=== PATIENT | female | born 1985 | race Caucasian/White ===

== ENCOUNTER 2018-12-05 20:32 | Emergency (ER) | payer MEDICAID ==
[~2018-12-05] VITALS: Ht 170.2 cm; Wt 72.6 kg
--- NOTE | 2018-12-05 21:21 | NUR ---
MOTHER CONTACT INFORMATION: MICAH-
--- NOTE | 2018-12-05 21:30 | NUR ---
[id number] FROM HOME. MOTHER CALLED 911 DUE TO BIZZARRE BEHAVIOR AND LOCKING HERSELF INSIDE HOME. PT AAOX4. REPEATING SAME PHRASES. +SI/-HI. PT HYPERVERBAL, DENIES CP, SOB, DIZZINESS, N/V/D AT THIS TIME. PT SEEN & EVAL'D BY TAMIE AYOUB. WILL CONT TO MONITOR.
[2018-12-05 22:12] LABS: BASOPHILS # (AUTO) 0.1 /CMM (0.0-0.2); BASOPHILS % (AUTO) 0.5 % (0.0-2.0); EOSINOPHILS % (AUTO) 0.1 % (0.0-6.0); HEMATOCRIT 40 % (33-45); HEMOGLOBIN 13.5 g/dL (11.5-14.8); LYMPHOCYTES # (AUTO) 1.8 /CMM (0.8-4.8); LYMPHOCYTES % (AUTO) 11.8 % (20.0-44.0); MEAN CORPUSCULAR HGB CONC 34 g/dl (31.0-36.0); MEAN CORPUSCULAR VOLUME 85 fL (82-100); MONOCYTES # (AUTO) 0.7 /CMM (0.1-1.30); MONOCYTES % (AUTO) 4.8 % (2.0-12.0); NEUTROPHILS % (AUTO) 82.8 % (43.0-81.0); PLATELET COUNT (AUTO) 381 /CMM (150-450); RED BLOOD CELL COUNT(AUTO) 4.75 MIL/uL (4.0-5.2); WHITE BLOOD COUNT (AUTO) 15.7 K/uL (4.3-11.0)
[2018-12-05 22:23] LABS: CALCIUM, SERUM 9.4 mg/dL (8.5-10.1); CARBON DIOXIDE 25 mmol/L (21-32); CHLORIDE 103 mmol/L (98-107); GLUCOSE 119 mg/dL (74-106); POTASSIUM 3.9 mmol/L (3.5-5.1); SODIUM SERUM 139 mmol/L (136-145); UREA NITROGEN, BLOOD 12 mg/dL (7-18)
[2018-12-05 22:29] LABS: ALANINE AMINOTRANSFERASE 42 U/L (12-78); ALBUMIN 4.4 g/dL (3.4-5.0); ALKALINE PHOSPHATASE 61 U/L (46-116); ASPARTATE AMINOTRANSFERASE 26 U/L (15-37); BILIRUBIN,DIRECT 0.1 mg/dL (0.0-0.2); BILIRUBIN,TOTAL 0.5 mg/dL (0.2-1.0); TOTAL PROTEIN, SERUM 7.7 g/dL (6.4-8.2)
[2018-12-05 22:30] LABS: ACETAMINOPHEN 0 ug/ml (10-30); ALCOHOL, BLOOD < 3 mg/dL (0-0); SALICYLATE 1.7 mg/dL (2.8-20.0)
[2018-12-05] MEDS ORDERED: OLANZAPINE 5 MG TABLET PO ONE (22:30)
[2018-12-05] MEDS ORDERED: OLANZAPINE 5 MG TABLET ONE (22:34)
--- NOTE | 2018-12-05 22:47 | NUR ---
PT REFUSED MED, ANITRA WILLETT AWARE.
--- NOTE | 2018-12-05 23:35 | NUR ---
ATTEMPTED TO GET URINE SAMPLE FROM PT, PT REFUSED. AWARE
--- NOTE | 2018-12-06 01:12 | NUR ---
PT TO CT
--- NOTE | 2018-12-06 01:44 | NUR ---
PT REFUSED URINE SAMPLE. AWARE
--- NOTE | 2018-12-06 02:20 | NUR ---
LEO NELSON BEDSIDE FOR PSYCHIATRIC EVALUATION
[2018-12-06] MEDS ORDERED: OLANZAPINE 10 MG VIAL IM ONE ×2 (02:30→02:40)
--- NOTE | 2018-12-06 02:47 | NUR ---
PER CRISIS TEAM LEO NELSON, PT IS PSYCHOTIC AND CANNOT REFUSE ZYPREXA. PT MEDICATED PER MD ORDER.
--- NOTE | 2018-12-06 04:38 | NUR ---
PT ABLE TO AMBULATE TO RESTROOM, STEADY GAIT. URINE COLLECTED AND SENT TO LAB
[2018-12-06 04:53] LABS: APPEARANCE,URINE Clear (CLEAR); BILIRUBIN,URINE Negative (NEGATIVE); BLOOD, URINE Negative Ery/uL (NEGATIVE); COLOR,URINE Yellow (YELLOW); KETONES,URINE >=160 (NEGATIVE); LEUKOCYTE ESTERASE ,URINE Negative (NEGATIVE); NITRITE, URINE Negative (NEGATIVE); PROTEIN,URINE Negative (NEGATIVE); UGLUCOSE Negative (NEGATIVE); UROBILINOGEN,URINE 0.2 EU/dL (0.2)
[2018-12-06 05:47] LABS: BACTERIA,URINE Few /HPF (None Seen); RBC,URINE 0-2 /HPF (0-2); SQUAMOUS EPITHELIAL CELL,UR Rare /HPF (None Seen); WBC,URINE 0-2 /HPF (0-3)
--- NOTE | 2018-12-06 06:54 | NUR ---
Patient is resting comfortably in bed with eyes closed. Easily aroused. VSS
--- NOTE | 2018-12-06 10:06 | NUR ---
JAROD GONZALEZ RN FOR PSYCH EVAL, ETA 1HR.
--- NOTE | 2018-12-06 10:20 | NUR ---
PT ASLEEP, RR EVEN & UNLABORED, EASILY AWAKEN BY VERBAL STIMULI. DENIES CP, SOB, DIZZINESS, ABD PAIN, N/V @ THIS TIME. WILL CONT TO MONITOR.
--- NOTE | 2018-12-06 12:00 | NUR ---
CARLOS, SHOE CLERK @ BS FOR EVAL.
--- NOTE | 2018-12-06 12:30 | NUR ---
PT AAOX3, VSS. DENIES ANY DISCOMFORT. OFFERED FOOD & DRINK BUT PT REFUSED.
[2018-12-06 13:18] VITALS: BP 118/78
== END 2018-12-06 13:20 | disposition home or self-care (01) ==
LOC: ER 20:40
DX: F23 Brief psychotic disorder (principal); I95.9 Hypotension, unspecified; F12.10 Cannabis abuse, uncomplicated; R41.82 Altered mental status, unspecified
CPT/HCPCS: 36415; 70450; 80048; 80076; 80305; 80307; 80329; 81001; 84702; 84703; 85025; 96372; 99284; G0480; J3490; 81000-TC

== ENCOUNTER 2019-02-04 19:49 | Emergency (ER) | payer MEDICAID ==
[~2019-02-04] VITALS: Ht 165.1 cm; Wt 81.6 kg
--- NOTE | 2019-02-04 20:49 | NUR ---
URINE SPECIMEN OBTAINED AND SENT TO THE LAB.
--- NOTE | 2019-02-04 21:00 | NUR ---
BIB SELF FROM HOME. AAOX4. NAD, BREATHING EVEN AND UNLABORED. AMBULATORY.C/O PAIN UPON URINATION, BURNING SENSATION AND ABDOPMINAL PAIN. X 4 DAYS. PT REPORTS BEING NAUSEOUS. TO ER BED 3. MD AT BEDSIDE FOR EVAL.
[2019-02-04 21:07] LABS: APPEARANCE,URINE Slightly Cloudy (CLEAR); BILIRUBIN,URINE Negative (NEGATIVE); BLOOD, URINE Moderate Ery/uL (NEGATIVE); KETONES,URINE Negative (NEGATIVE); LEUKOCYTE ESTERASE ,URINE Small (NEGATIVE); NITRITE, URINE Positive (NEGATIVE); PROTEIN,URINE 100 mg/dl (NEGATIVE); UGLUCOSE Negative (NEGATIVE); UROBILINOGEN,URINE 0.2 EU/dL (0.2)
[2019-02-04 21:24] LABS: BACTERIA,URINE Moderate /HPF (None Seen); COLOR,URINE DARK YELLOW (YELLOW)
[2019-02-04 21:25] LABS: SQUAMOUS EPITHELIAL CELL,UR Few /HPF (None Seen)
[2019-02-04] MEDS ORDERED: CIPROFLOXACIN HCL 500 MG TABLET PO ONE (21:30)
[2019-02-04] MEDS ORDERED: PHENAZOPYRIDINE HCL 200 MG TABLET PO ONE (21:30)
[2019-02-04] MEDS ORDERED: CIPROFLOXACIN HCL 500 MG TABLET ONE (21:39)
[2019-02-04] MEDS ORDERED: PHENAZOPYRIDINE HCL 200 MG TABLET ONE (21:39)
--- NOTE | 2019-02-04 21:42 | NUR ---
Patient discharged to home in stable condition. Written and verbal after care instructions given. Patient verbalizes understanding of instruction. Pt ambulatory with a steady gait
[2019-02-04 21:43] VITALS: BP 146/88
== END 2019-02-04 21:44 | disposition home or self-care (01) ==
LOC: ER 19:52
DX: N39.0 Urinary tract infection, site not specified (principal); I95.9 Hypotension, unspecified
CPT/HCPCS: 81000-TC; 84703-TC; 87086-TC

== ENCOUNTER 2019-04-26 20:53 | Emergency (ER) | payer MEDICAID ==
[2019-04-26] MEDS ORDERED: AMOX/CLAVULANATE 875 MG TABLET PO ONE (23:00)
[2019-04-27] MEDS ORDERED: AMOX/CLAVULANATE 875 MG TABLET ONE (01:51)
== END 2019-04-26 23:45 | disposition home or self-care (01) ==
DX: S60.031A Contusion of right middle finger without damage to nail, initial encounter (principal); Z98.890 Other specified postprocedural states; W54.0XXA Bitten by dog, initial encounter; Y93.89 Activity, other specified; Y92.89 Other specified places as the place of occurrence of the external cause; Y99.8 Other external cause status

== ENCOUNTER 2021-01-02 16:32 | Emergency (ER) | payer OTHER ==
[~2021-01-02] VITALS: Ht 170.2 cm; Wt 77.1 kg
[2021-01-02] MEDS ORDERED: diphenhydrAMINE HCL 50 MG/ML VIAL ONE (16:44)
[2021-01-02] MEDS ORDERED: HALOPERIDOL LACTATE INJ 5 MG/ML VIAL ONE (16:45)
[2021-01-02] MEDS ORDERED: LORAZEPAM INJ 2 MG/ML VIAL ONE (16:45)
--- NOTE | 2021-01-02 16:45 | NUR ---
BIB RA102 From Home "Psych evaluation/Medical Clearance Hx of Schizo pt screaming/inappropriate/agitated and restless" Patient a/ox4, breathing even and unlabored, no sob noted, needs attended. Kept comfortable. Patient still agitated. Placed on restraints per doctor's order.
[2021-01-02 16:54] LABS: BILIRUBIN,URINE SMALL (NEGATIVE); COLOR,URINE YELLOW (YELLOW); LEUKOCYTE ESTERASE ,URINE Negative (NEGATIVE); NITRITE, URINE Negative (NEGATIVE); PH,URINE 5.5 (5.0-8.0); PROTEIN,URINE 30 mg/dl (NEGATIVE); UGLUCOSE Negative (NEGATIVE); UROBILINOGEN,URINE 0.2 EU/dL (0.2)
[2021-01-02] MEDS ORDERED: HALOPERIDOL LACTATE INJ 5 MG/ML VIAL IM ONE (17:00)
[2021-01-02] MEDS ORDERED: LORAZEPAM INJ 2 MG/ML VIAL IM ONE (17:00)
[2021-01-02] MEDS ORDERED: diphenhydrAMINE HCL 50 MG/ML VIAL IM ONE (17:00)
[2021-01-02 17:01] LABS: BASOPHILS % (AUTO) 0.4 % (0.0-2.0); EOSINOPHILS % (AUTO) 0.1 % (0.0-6.0); HEMATOCRIT 38 % (33-45); HEMOGLOBIN 12.6 g/dL (11.5-14.8); LYMPHOCYTES # (AUTO) 1.9 /CMM (0.8-4.8); LYMPHOCYTES % (AUTO) 16.6 % (20.0-44.0); MEAN CORPUSCULAR HGB CONC 33 g/dl (31.0-36.0); MEAN CORPUSCULAR VOLUME 86 fL (82-100); MONOCYTES # (AUTO) 0.6 /CMM (0.1-1.30); MONOCYTES % (AUTO) 5.2 % (2.0-12.0); NEUTROPHILS % (AUTO) 77.7 % (43.0-81.0); PLATELET COUNT (AUTO) 391 /CMM (150-450); RED BLOOD CELL COUNT(AUTO) 4.42 MIL/uL (4.0-5.2); WHITE BLOOD COUNT (AUTO) 11.6 K/uL (4.3-11.0)
[2021-01-02 17:05] LABS: BACTERIA,URINE Rare /HPF (None Seen); RBC,URINE 0-2 /HPF (0-2); SQUAMOUS EPITHELIAL CELL,UR 0-2 /HPF (None Seen); WBC,URINE 0-2 /HPF (0-3)
[2021-01-02 17:14] LABS: ACETAMINOPHEN < 10 ug/ml (10-30); ALANINE AMINOTRANSFERASE 46 U/L (12-78); ALBUMIN 4.5 g/dL (3.4-5.0); ALCOHOL, BLOOD < 3 mg/dL (0-0); ALKALINE PHOSPHATASE 50 U/L (46-116); ASPARTATE AMINOTRANSFERASE 24 U/L (15-37); BILIRUBIN,DIRECT 0.1 mg/dL (0.0-0.2); BILIRUBIN,TOTAL 0.5 mg/dL (0.2-1.0); CALCIUM, SERUM 8.7 mg/dL (8.5-10.1); CARBON DIOXIDE 22 mmol/L (21-32); CHLORIDE 102 mmol/L (98-107); CREATININE 0.8 mg/dL (0.6-1.3); GLUCOSE 145 mg/dL (74-106); POTASSIUM 2.9 mmol/L (3.5-5.1); SODIUM SERUM 138 mmol/L (136-145); TOTAL PROTEIN, SERUM 7.5 g/dL (6.4-8.2); UREA NITROGEN, BLOOD 9 mg/dL (7-18)
[2021-01-02] MEDS ORDERED: IV NS 0.9% 1,000 ML BAG IV ONE (17:30)
[2021-01-02] MEDS ORDERED: POTASSIUM CHLORIDE 20 MEQ TAB.PRT.SR PO ONE ×2 (17:30)
[2021-01-02] MEDS ORDERED: POTASSIUM CL. PREMIX PERIPHER. 200 ML ONE (17:32)
[2021-01-02] MEDS: POTASSIUM CL. PREMIX PERIPHER. 50 ML IV SCH ×4 (17:53→22:57)
[2021-01-02 20:55] LABS: CALCIUM, SERUM 7.9 mg/dL (8.5-10.1); CREATININE 0.7 mg/dL (0.6-1.3); POTASSIUM 3.8 mmol/L (3.5-5.1)
--- NOTE | 2021-01-02 21:43 | NUR ---
PT OPENS EYES TO PAINFUL STIMULI. VITAL SIGNS STABLE. SITTER AT BEDSIDE, WILL CONTINUE TO MONITOR
--- NOTE | 2021-01-03 02:31 | NUR ---
PT RESTING COMFORTABLY IN BED. SITTER STILL AT BEDSIDE, WILL CONTINUE TO MONITOR
--- NOTE | 2021-01-03 05:55 | NUR ---
DISTRICT RECRUITER NAM GONZALEZ AT BEDSIDE FOR EVAL
--- NOTE | 2021-01-03 06:02 | NUR ---
PT AMBULATORY TO RESTROOM WITH STEADY GAIT
--- NOTE | 2021-01-03 07:38 | NUR ---
ASSESSED PT ON BED ASLEEP EASILY AROUSABLE, NOT IN RESPIRATORY DISTRESS, V/S STABLE, KEPT RESTED AND COMFORTABLE. WILL CONTINUE TO MONITOR.
--- NOTE | 2021-01-03 10:58 | NUR ---
DENISE FROM [facility] PT ACCEPTED UNDER DR. MCDANIEL GOING TO EAST UNIT ROOM 288-A CALL [phone]
--- NOTE | 2021-01-03 11:08 | NUR ---
CALLED [facility] FOR REPORT PER JCARLOS CHEN CALL BACK AFTER 15 MINS RN NOT AVAILABLE
--- NOTE | 2021-01-03 11:09 | NUR ---
CALLED TRANSPORT [facility] ETA IS 60 MINS PER ARLIN.
--- NOTE | 2021-01-03 11:35 | NUR ---
PER RN REBEL CALL BACK AFTER 10 MINS.
[2021-01-03 12:05] VITALS: BP 127/82
--- NOTE | 2021-01-03 12:06 | NUR ---
REPORT GIVEN TO JCARLOS LUQUE OF [facility]
--- NOTE | 2021-01-03 12:07 | NUR ---
LAB CALLED PT COVID RESULT NEGATIVE (-).
--- NOTE | 2021-01-03 12:31 | NUR ---
REPORT GIVEN TO EMS FOR PT TRANSFER TO [facility].
== END 2021-01-03 12:44 ==
LOC: ER 17:10
DX: R45.1 Restlessness and agitation (principal); F31.9 Bipolar disorder, unspecified; F43.10 Post-traumatic stress disorder, unspecified; D72.829 Elevated white blood cell count, unspecified; E87.6 Hypokalemia; E86.0 Dehydration; Z20.822 Contact with and (suspected) exposure to COVID-19; Z91.14 Patient's other noncompliance with medication regimen
CPT/HCPCS: 36415; 80048 ×2; 80076; 80299; 80307; 80320; 81001; 84703; 85025; 87426; 93005; 96361; 96365; 96366; 96372 ×2; 99285; C9803; J1200; J1630; J2060; J3480; J7030; G0480